=== PATIENT | female | born 1985 | race Caucasian/White ===

== ENCOUNTER 2021-02-09 06:39 | Inpatient (IN) | payer BC ==
[~2021-02-09] VITALS: Ht 165.2 cm; Wt 113.2 kg
[2021-02-09] VITALS (15 sets, daily range): BP systolic 79–109; BP diastolic 38–60; PULSE 57–71; TEMP 98–98.6
--- NOTE | 2021-02-09 11:20 | NUR ---
1120- Pt arrives on unit ambulatory with . Taken to 213, oriented to room. 1130- Pt into bed, EFM and TOCO on and tracing. Assessment completed. Dr Sanon at bedside. Discusses delay in surgery. Questions answered. Pt and understanding. Consent forms explained and signed. Pt resting comfortably. Call light within reach. 1211- Category I FHR tracing noted, no contractions noted on monitor. EFM and TOCO off so Pt can ambulate around room as desires.
[2021-02-09] MEDS ORDERED: NATURAL IRON65 MG (11:46)
[2021-02-09] MEDS ORDERED: PROTONIX 40MG T40 MG PO (11:46)
[2021-02-09] MEDS ORDERED: LEXAPRO 10MG10 MG PO (11:46)
[2021-02-09] MEDS ORDERED: UNISOM25 MG PO (11:47)
[2021-02-09 15:08] LABS: BASO % 0.4 % (0.0-2.0); EOS # 0.1 (0.0-0.7); EOS % 0.6 % (0-4.0); GRAN # 8.8 (1.4-6.5); GRAN % 77.1 % (42.2-75.2); LYMPH # 1.9 (1.2-3.4); LYMPH % 16.4 % (20.0-51.0); MEAN CELL VOLUME 80 fl (80.0-100.0); MEAN CORPUSCULAR HGB CONC 30 g/dl (33.0-37.0); MEAN PLATELET VOLUME 10.6 fl (7.4-10.4); MONO # 0.6 (0.1-0.6); MONO % 4.8 % (1.7-9.3); PLATELET COUNT 318 K/mm3 (130-400); RED BLOOD COUNT 4.08 M/mm3 (4.10-5.30); REDCELL DISTRIBUTION WIDTH-CV 16.4 % (11.5-14.5)
[2021-02-09 15:13] LABS: HEMATOCRIT 32.6 % (37.0-47.0); HEMOGLOBIN 9.9 g/dl (12.5-16.0); MEAN CORPUSCULAR HEMOGLOBIN 24 pg (27.0-31.0)
--- NOTE | 2021-02-09 16:11 | NUR ---
1611- EFM and TOCO on and tracing. Pt verbalizes feeling contraction x1, noted on monitor by this RN at 1618. Pt denies pain. 1621- EFM and TOCO off. Pt ambulates to OR with GONZALES Srivastava.
[2021-02-10 01:15] VITALS: BP 101/56; PULSE 65; TEMP 98.9
[2021-02-10 05:10] VITALS: BP 94/54; PULSE 49; TEMP 98.2
[2021-02-10 07:00] VITALS: BP 104/57; PULSE 47; TEMP 98.3
[2021-02-10] MEDS ORDERED: IBU600 MG PO (08:31)
[2021-02-10] MEDS ORDERED: PERCOCET 325 MG1 TA2 PO (08:32)
--- NOTE | 2021-02-10 09:50 | NUR ---
Initial visit attempt; Family resting. Export Agent left card of congratulations and God's blessings for the of their daughter and information regarding the availability of spiritual care at our hospital.
[2021-02-10 15:52] VITALS: BP 103/57; PULSE 72; TEMP 97.8
[2021-02-10 20:00] VITALS: BP 92/51; PULSE 61; TEMP 97.7
[2021-02-10 23:30] VITALS: BP 115/64; PULSE 62; TEMP 98.1
[2021-02-11 08:00] VITALS: BP 106/52; PULSE 63; TEMP 97.9
--- NOTE | 2021-02-11 14:30 | NUR ---
Discharge instructions given by Izzy Borrego r.n. [id number] Dismissed to home, alert, stable, ambulatory.
== END 2021-02-11 14:40 | disposition home or self-care (01) | DRG 788 ==
LOC: OB 06:39
PROVIDERS: ADMIT Obstetrics & Gynecology
PROC: 10D00Z1 Extraction of Products of Conception, Low, Open Approach (ICD-10-PCS; principal; 2021-02-09)
DX: O34.211 Maternal care for low transverse scar from previous cesarean delivery (principal); O99.02 Anemia complicating childbirth; O99.344 Other mental disorders complicating childbirth; F41.9 Anxiety disorder, unspecified; D64.9 Anemia, unspecified; Z98.84 Bariatric surgery status; Z3A.39 39 weeks gestation of pregnancy; Z37.0 Single live birth
CPT/HCPCS: J0690; J1100; J1885; J2370; J2405; J2590; J7120

== ENCOUNTER → 2021-02-09 | Outpatient (CLI) | payer BC ==
[~2021-02-09] MED LIST: IBU600 MG PO; LEXAPRO 10MG10 MG PO; NATURAL IRON65 MG; PERCOCET 325 MG1 TA2 PO; PROTONIX 40MG T40 MG PO; UNISOM25 MG PO
== END ==
LOC: ZCOL.LAB
DX: Z20.822 Contact with and (suspected) exposure to COVID-19 (principal)